=== PATIENT | male | born 1955 | race Caucasian/White ===

== ENCOUNTER 2016-12-04 18:52 | Inpatient (IN) ==
[2016-12-04] MEDS ORDERED: methylPREDNISolone 125 MG/2 ML VIAL IVP ONE (19:08)
[2016-12-04] MEDS ORDERED: Ipratropium/Albuterol Neb 3 ML IH ONE (19:08)
[2016-12-04] MEDS ORDERED: 0.9 % Sodium Chloride 1,000 ML IVC ONE ×2 (19:08→20:18)
--- NOTE | 2016-12-04 19:19 | Emergency Department Note ---
Disposition Clinical Impression: Severe sepsis, COPD exacerbation Pneumonia Qualifiers: Pneumonia type: due to unspecified organism Laterality: right Lung location: lower lobe of lung Qualified Code(s): J18.1 - Lobar pneumonia, unspecified organism Disposition: Admitted As Inpatient Condition: Fair Referrals: NO,PCP [Primary Care Provider] - Forms: ED Satisfaction Letter General Adult HPI - General Chief complaint: ED Shortness of Breath/Dyspnea Stated complaint: COPD Time Seen by Provider: 12/04/16 19:07 Source: patient, EMS Mode of arrival: EMS Limitations: no limitations Nursing Notes Reviewed: Yes Vital Signs Reviewed: Yes - History of Present Illness HPI Narrative: 61-year-old male past medical history of COPD, hyperlipidemia, depression. He wears 2 L of oxygen at home. He reports that he is had a couple days of worsening shortness of breath and cough. He says today it was markedly worse. He denies chest pain. He has been feeling generally fatigued. He reports he is just admitted in October and in looking through the medical record is due to a COPD exacerbation. He does continue to smoke. This is worse with exertion and does get better with rest. No orthopnea or lower extremity edema. Radiation: non-radiation Pain Scale: 0 Consistency: constant Associated symptoms: Reports: denies other symptoms Treatments Prior to Arrival: none - Related Data Home Medications Medication Instructions Recorded Confirmed Ferrous Sulfate 325 mg PO DAILY 07/25/15 11/10/16 Omeprazole [PriLOSEC] 20 mg PO DAILY 07/25/15 11/10/16 Albuterol Neb [Proventil Neb] 2.5 mg IH Q6H PRN 07/19/16 11/10/16 Cholecalciferol (D-3) [Vitamin D] 1,000 unit PO DAILY 07/19/16 11/10/16 Paroxetine [Paxil] 20 mg PO DAILY 07/19/16 11/10/16 Primidone [Mysoline] 50 mg PO HS 07/19/16 11/10/16 Tiotropium [place] [Spiriva] 1 cap IH DAILY 07/19/16 11/10/16 Trazodone HCl 50 - 100 mg PO HS 11/10/16 11/10/16 Allergies Allergy/AdvReac Type Severity Reaction Status Date / Time No Known Allergies Allergy Verified 12/04/16 18:59 All systems ED: reviewed and negative except as stated. Constitutional: Reports: chills, weakness. Denies: fever Eyes: Denies: vision change ENT ED: Denies: throat pain Cardiovascular: Denies: chest pain Respiratory: Reports: cough, dyspnea, wheezes Gastrointestinal: Denies: abdominal pain, nausea, vomiting Genitourinary: Denies: dysuria Musculoskeletal: Denies: back pain Integumentary: Denies: rash Neurological: Denies: headache Endocrine: Reports: fatigue Past Medical History - Past Medical History Medical history: Reports: arthritis, asthma, COPD, GERD, osteoporosis, other Surgical history: Reports: orthopedic, other, other Psychiatric history: Reports: anxiety, depression - Social History Smoking Status: Current every day smoker Smokeless Tobacco Status: No Alcohol use: Reports: none Drug use: Reports: none Physical Exam - General Limitations: no limitations General appearance: alert, in no apparent distress - Head Head exam: atraumatic - Eye Eye exam: Present: normal appearance, PERRL, EOMI - ENT ENT exam: normal exam, normal oropharynx - Neck Neck exam: Present: normal inspection, full ROM - Chest Chest inspection: Present: normal inspection - Respiratory Respiratory exam: Present: other (Markedly decreased air movement. Tight. Minimal wheezes after albuterol) - Cardiovascular Cardiovascular exam: Present: normal rhythm, tachycardia - Abdominal Exam Abdominal exam: Present: soft, Non-Tender - Extremities Exam Extremities exam: Present: normal inspection - Back Exam Back exam: Present: normal inspection - Neurological Exam Neurological exam: Present: alert, oriented X3 - Psychiatric Psychiatric exam: Present: normal affect, normal mood - Skin Skin exam: Present: warm, dry Course Course Narrative: The patient states this feels like his COPD exacerbation and the symptoms that he describes are consistent with that. I will do a EKG obtained blood cultures and lab work in addition to giving Solu-Medrol and DuoNeb. She did have rigors while those in the room sign concerned about infectious etiology associated with the COPD exacerbation. - Reevaluation(s) Reevaluation #1: Xray shows patchy airspace disease. He has a fever with respiratory symptoms. He feels much improved after breathing treatment and fluids. Starting abx and have paged the hospitalists Vitals have not been updated with a temperature of 102.9 taken by myself. Vital Signs Temperature 98.3 F 12/04/16 18:58 Pulse Rate 117 12/04/16 18:58 Respiratory Rate 20 12/04/16 18:58 Blood Pressure 152/118 12/04/16 18:58 O2 Sat by Pulse Oximetry 88 L 12/04/16 18:58 Temperature 102.9 F H 12/04/16 19:30 Pulse Rate 106 12/04/16 19:30 Respiratory Rate 18 12/04/16 19:44 Blood Pressure 143/88 12/04/16 19:30 O2 Sat by Pulse Oximetry 90 L 12/04/16 19:44 Oxygen Delivery Oxygen Delivery Nasal Cannula Medical Decision Making - Medical Records Medical records reviewed: Yes I reviewed the patient's medical records. - Lab Data Lab results reviewed: Yes I reviewed the patient's lab results. Result diagrams: 12/04/16 19:17 12/04/16 19:17 Lab Results 12/04/16 12/04/16 12/04/16 Range/Units 19:17 19:17 19:17 WBC 12.6 H (4.3-11.1) K/mcL RBC 4.66 (4.19-5.50) M/mcL Hgb 14.7 (12.9-16.9) g/dL Hct 44.4 (37.5-50.1) % MCV 95.3 (83.0-100.0) fL MCH 31.5 (28.0-33.3) pg MCHC 33.1 (31.6-35.5) g/dL RDW 13.7 (11.5-14.5) % Plt Count 202 (140-400) K/mcL MPV 9.9 (9.4-12.4) fL Immature Gran % 0.4 (0-4) % Seg Neutrophils % 85.7 % Lymphocytes % 7.8 % Monocytes % 4.3 % Eosinophils % 1.6 % Basophils % 0.2 % Neutrophils # 10.8 H (1.6-8.9) K/mcL Lymphocytes # 1.0 (0.6-4.6) K/mcL Monocytes # 0.5 (0.0-1.3) K/mcL Eosinophils # 0.2 (0.0-0.6) K/mcL Basophils # 0.0 (0.0-0.2) K/mcL Sodium 137 (136-145) mEq/L Potassium 3.6 (3.5-4.5) mEq/L Chloride 104 (98-109) mEq/L Carbon Dioxide 22 (19-29) mEq/L BUN 11 (8-26) mg/dL Creatinine 1.35 H (0.72-1.25) mg/dL Est GFR ( Amer) > 60 (> 60) Est GFR (Non-Af Amer) 54 L (> 60) BUN/Creatinine Ratio 8 (6-26) Glucose 150 H (70-99) mg/dL Calculated Osmolality 286 (280-300) Lactic Acid 2.9 H (0.5-2.2) mmol/L Calcium 8.8 (8.6-10.8) mg/dL Troponin I (0-0.03) ng/mL B-Natriuretic Peptide (0-100) pg/mL 12/04/16 12/04/16 Range/Units 19:17 19:17 WBC (4.3-11.1) K/mcL RBC (4.19-5.50) M/mcL Hgb (12.9-16.9) g/dL Hct (37.5-50.1) % MCV (83.0-100.0) fL MCH (28.0-33.3) pg MCHC (31.6-35.5) g/dL RDW (11.5-14.5) % Plt Count (140-400) K/mcL MPV (9.4-12.4) fL Immature Gran % (0-4) % Seg Neutrophils % % Lymphocytes % % Monocytes % % Eosinophils % % Basophils % % Neutrophils # (1.6-8.9) K/mcL Lymphocytes # (0.6-4.6) K/mcL Monocytes # (0.0-1.3) K/mcL Eosinophils # (0.0-0.6) K/mcL Basophils # (0.0-0.2) K/mcL Sodium (136-145) mEq/L Potassium (3.5-4.5) mEq/L Chloride (98-109) mEq/L Carbon Dioxide (19-29) mEq/L BUN (8-26) mg/dL Creatinine (0.72-1.25) mg/dL Est GFR ( Amer) (> 60) Est GFR (Non-Af Amer) (> 60) BUN/Creatinine Ratio (6-26) Glucose (70-99) mg/dL Calculated Osmolality (280-300) Lactic Acid (0.5-2.2) mmol/L Calcium (8.6-10.8) mg/dL Troponin I 0.01 (0-0.03) ng/mL B-Natriuretic Peptide 18 (0-100) pg/mL - Radiology Data Radiology results reviewed: No I reviewed the patient's radiology results. - EKG Data EKG #1 EKG attestation: Yes I reviewed and interpreted this EKG. EKG shows normal: sinus rhythm Rate: tachycardia Rhythm: NSR When compared to previous EKG there are: no significant changes Attestation Statement - Attestation Attestation: I, Beny Vickers MD, personally performed a history and physical exam of the patient and discussed their management with the resident. I reviewed the resident's note and agree with the documented findings, medical decision making , and plan of care. 61-year-old male with history of COPD presents to the emergency department by ambulance with a complaint of increasing cough and shortness of breath over the past 2 days. He does use home oxygen as needed but states it did not seem to be helping much. He has had chills and subjective fever. No chest pain. On examination patient is a well-developed obese male in no acute distress. He is alert and oriented 3. There is no cyanosis or diaphoresis. Breath sounds are decreased bilaterally with scattered bilateral expiratory wheezes. Heart tachycardic and regular. Abdomen soft and nontender with normal bowel sounds. Labs reviewed. WBC 12.6. Lactic acid 2.9. Chest x-ray shows bibasilar airspace disease. EKG shows sinus tachycardia with a heart rate of 112, no acute changes. The hospitalist, Dr. Joe, was consulted and accepted admission of the patient.
[2016-12-04 19:32] LABS: Basophils % 0.2 %; Eosinophils # 0.2 K/mcL (0.0-0.6); Eosinophils % 1.6 %; Hematocrit 44.4 % (37.5-50.1); Hemoglobin 14.7 g/dL (12.9-16.9); Immature Granulocytes % 0.4 % (0-4); Lymphocytes % 7.8 %; Mean Corpuscular HGB Conc 33.1 g/dL (31.6-35.5); Mean Corpuscular Hemoglobin 31.5 pg (28.0-33.3); Mean Corpuscular Volume 95.3 fL (83.0-100.0); Mean Platelet Volume 9.9 fL (9.4-12.4); Monocytes # 0.5 K/mcL (0.0-1.3); Monocytes % 4.3 %; Neutrophils # 10.8 K/mcL (1.6-8.9); Platelet Count 202 K/mcL (140-400); Red Blood Count 4.66 M/mcL (4.19-5.50); Red Cell Distribution Width 13.7 % (11.5-14.5); Segmented Neutrophils % 85.7 %
[2016-12-04 20:18] LABS: BUN/Creatinine Ratio 8 (6-26); Blood Urea Nitrogen 11 mg/dL (8-26); Calcium 8.8 mg/dL (8.6-10.8); Carbon Dioxide 22 mEq/L (19-29); Chloride 104 mEq/L (98-109); Glucose 150 mg/dL (70-99); Osmolality,Calculated 286 (280-300); Potassium 3.6 mEq/L (3.5-4.5); Sodium 137 mEq/L (136-145); eGFR For African Americans > 60 (> 60); eGFR For Non-African Americans 54 (> 60)
[2016-12-04] MEDS ORDERED: Levofloxacin 750 MG/150 ML 750 MG/150 ML BAG IVPB ONE (20:19)
[2016-12-04] MEDS ORDERED: Vancomycin 1,000 MG in D5% in Water 250 ML IVPB ONE (20:19)
[2016-12-04] MEDS ORDERED: Piperacillin/Tazobactam 3.375 GM in D5% in Water (Mini-Bag+) 100 ML IVPB ONE (20:19)
[2016-12-04] MEDS ORDERED: Ondansetron 4 MG/2 ML VIAL IVP PRN (20:46)
[2016-12-04] MEDS ORDERED: Acetaminophen 325 MG TABLET PO PRN (20:46)
[2016-12-04] MEDS ORDERED: *HR* HYDROcodone/Acet 5/325 mg TABLET PO PRN (20:46)
[2016-12-04] MEDS ORDERED: Naloxone 0.4 MG/ML INJ IVP PRN (20:46)
[2016-12-04] MEDS ORDERED: *HR* Morphine 2 MG/ML SYRINGE IVP PRN (20:46)
[2016-12-04] MEDS ORDERED: 0.9 % Sodium Chloride 1,000 ML IVC SCH (21:00)
--- NOTE | 2016-12-04 22:11 | Internal Med History&Physical ---
Date of Encounter: 12/04/16 Time of Encounter: 22:08 Assessment and Plan (1) Acute and chronic respiratory failure ([id number]) Current visit: Yes Status: Acute Secondary to sepsis, HCAP At time of review, O2sat 93% , acceptable for his COPD status Continue same Qualifiers: Respiratory failure complication: hypoxia Qualified Code(s): J96.21 - Acute and chronic respiratory failure with hypoxia (2) Severe sepsis Current visit: Yes Status: Acute Severe sepsis with lactic acidosis and SCOTT Tmax 102.9, tachycardia, leukocytosis Source is Pulmonary-HCAP, patient was recently hospitalized in 10/2016 Blood cultures have been drawn, will follow Continue Vaco, Zosyn, Levofox De-escalate prn Sputum cultures when /if patient starts to make sputum Blood pressure is acceptable Continue IVF hydration Repeat lactate High risk for septic shock (3) Pneumonia Current visit: Yes Status: Acute As above Qualifiers: Pneumonia type: due to unspecified organism Laterality: bilateral Lung location: lower lobe of lung Qualified Code(s): J18.9 - Pneumonia, unspecified organism (4) Lactic acidosis Current visit: Yes Status: Acute IVF hydration Rpt lactate a.m (5) SCOTT (acute kidney injury) Current visit: Yes Status: Acute Mild IVF hydration Pre-renal, non-oliguric Avoid nephrotoxins Monitor chem (6) COPD exacerbation Current visit: Yes Status: Acute Duoebs q4h Prednisone po KeepHOB elevated Other management as in sepsis and pneumonia (7) Obesity (BMI 30-39.9) Current visit: Yes Status: Chronic Internal Medicine - H&P: HPI Chief complaint: Shortness of breath Admitted From: Home Plans for Post Hospital Care: Home History of present illness: Mr. Multani is a 61 year old male recently discharged from this facility 10/2016 Was in his usual state of health till 4 days ago when he developed shortness of breath and wheezing, this did not respond to his usual breathing treatment. He also reports chills and rigors, and subjective fevers. He reports associated dry cough. He denies sick contacts, recent travels, sore throat, myalgias, arthralgias. He denies chest pain, palpitations, denies orthopnea, or PND. He has no leg swelling. He just received his booster Pneumovac and Influenza vaccine this season He denies any abdominal or symptoms. Past Med Surg Social Fam HX - Past Medical History Medical history: arthritis, asthma, COPD, GERD, osteoporosis, other Psychiatric history: anxiety, depression - Past Surgical History Surgical History: orthopedic, other, other - Social History Smoking Status: Current every day smoker Smokeless Tobacco Status: No Alcohol use: none Drug use: none - Family History Mother Living Status: Hx Family Cardiac Disorders: Yes ([place]) Father Adopted: No Family Member Ethnicity: Non- Living Status: Hx Family Cancer: Yes Internal Medicine - H&P: Meds Ferrous Sulfate 325 mg PO DAILY 07/25/15 [History] Omeprazole [PriLOSEC] 20 mg PO DAILY 07/25/15 [History] Albuterol Neb [Proventil Neb] 2.5 mg IH Q6H PRN 07/19/16 [History] Paroxetine [Paxil] 20 mg PO DAILY 07/19/16 [History] Primidone [Mysoline] 50 mg PO HS 07/19/16 [History] Tiotropium [place] [Spiriva] 1 cap IH DAILY 07/19/16 [History] Trazodone HCl 50 - 100 mg PO HS 11/10/16 [History] Albuterol Sulfate [Ventolin Hfa] 2 puff IH Q4H PRN 12/04/16 [History] Aspirin [Ecotrin] 325 mg PO DAILY PRN 12/04/16 [History] BuPROPion XL (24 HR) [Wellbutrin XL] 150 mg PO DAILY 12/04/16 [History] Allergies No Known Allergies Allergy (Verified 12/04/16 18:59) All Systems PM: A 10-system review of systems was performed and is negative for pertinent findings except as documented above in the HPI. - Constitutional Constitutional: chills, fever(s), malaise - EENT Eyes: no change in vision, no discharge, no pain, no photophobia Ears: no ear discharge, no ear pain, no tinnitus Nose, mouth and throat: no dysphagia, no nasal discharge, no neck pain, no sore throat - Cardiovascular Cardiovascular ROS IM: as per HPI - Respiratory Respiratory: as per HPI - Gastrointestinal Gastrointestinal: as per HPI - Musculoskeletal Musculoskeletal ROS IM: no arthralgias, no myalgias - Integumentary Integumentary IM: no rash, no unusual bruising - Neurological Neurological ROS: no confusion, no convulsions, no focal weakness, no numbness, no tingling, no tremor(s) - Hematologic/Lymphatic Hematologic/Lymphatic: no easy bruising - Allergic/Immunologic Allergic/Immunologic: no seasonal rhinorrhea - Constitutional Vitals: Temp Pulse Resp BP Pulse Ox 100.6 F H 109 18 116/71 95 12/04/16 22:00 12/04/16 20:36 12/04/16 21:42 12/04/16 21:42 12/04/16 20:36 General appearance: Present: A&O X 3, pleasant, no acute distress, obese - Head Head exam: Present: atraumatic, normocephalic - Eye Eye exam: Present: PERRL, conjuntiva pink, sclera anicteric Pupils: Present: PERRL - Neck Neck exam general surgery: Present: supple, trachea midline. Absent: lymphadenopathy - Respiratory Respiratory exam: Present: wheezes - Cardiovascular Cardiovascular exam: Present: RRR, +S1, +S2, tachycardia. Absent: diastolic murmur, gallop, rubs, systolic murmur - GI/Abdominal GI/Abdominal exam: Present: normal bowel sounds, soft, no peritoneal signs. Absent: distended, tenderness - Extremities Exam Extremities exam: Present: warm, radial pulses palpable and symetrical. Absent : calf tenderness, cyanotic, pedal edema - Neurological Exam Neurological exam: Present: CN II-XII intact, oriented X3, no focal deficits. Absent: pronater drift, facial droop, speech deficit - Skin Skin exam: Present: dry, intact Internal Med - H&P Results - Labs CBC & Chem 7: 12/04/16 19:17 12/04/16 19:17
[2016-12-04] MEDS: Ipratropium/Albuterol Neb 3 ML IH SCH (22:36)
[2016-12-05 01:30] LABS: Basophils % 0.1 %; Hematocrit 41.2 % (37.5-50.1); Hemoglobin 13.9 g/dL (12.9-16.9); Immature Granulocytes % 0.4 % (0-4); Lymphocytes % 2.6 %; Mean Corpuscular HGB Conc 33.7 g/dL (31.6-35.5); Mean Corpuscular Volume 94.9 fL (83.0-100.0); Monocytes % 3.1 %; Platelet Count 188 K/mcL (140-400); Red Blood Count 4.34 M/mcL (4.19-5.50); Red Cell Distribution Width 13.3 % (11.5-14.5); Segmented Neutrophils % 93.8 %
[2016-12-05 01:31] LABS: Lymphocytes # 0.4 K/mcL (0.6-4.6); Monocytes # 0.4 K/mcL (0.0-1.3); Neutrophils # 13.4 K/mcL (1.6-8.9)
[2016-12-05 01:46] LABS: BUN/Creatinine Ratio 8 (6-26); Blood Urea Nitrogen 11 mg/dL (8-26); Calcium 8.3 mg/dL (8.6-10.8); Carbon Dioxide 19 mEq/L (19-29); Chloride 110 mEq/L (98-109); Glucose 250 mg/dL (70-99); Osmolality,Calculated 294 (280-300); Potassium 3.8 mEq/L (3.5-4.5); Sodium 138 mEq/L (136-145); eGFR For African Americans > 60 (> 60); eGFR For Non-African Americans 54 (> 60)
[2016-12-05] MEDS: Piperacillin/Tazobactam 3.375 GM in D5% in Water (Mini-Bag+) 100 ML IVPB SCH ×3 (03:22→16:58)
[2016-12-05] MEDS: Ipratropium/Albuterol Neb 3 ML IH SCH ×5 (04:13→22:32)
[2016-12-05] MEDS ORDERED: Vancomycin 2,000 MG in D5% in Water 500 ML IVPB SCH (06:00)
[2016-12-05] MEDS ORDERED: Vancomycin 1,000 MG in D5% in Water 250 ML IVPB SCH (06:00)
[2016-12-05] MEDS: *HR* Enoxaparin 40 MG/0.4 ML SYRINGE SQ SCH (06:35)
--- NOTE | 2016-12-05 08:40 | Internal Med Progress Note ---
<Richard Coleman - Last Filed: 12/05/16 13:11> Date of Encounter: 12/05/16 Time of Encounter: 08:40 - Assessment and plan (1) HCAP (healthcare-associated pneumonia) Current Visit: Yes Status: Acute Assessment and plan: Discharged on 11/13/17, x-ray showed patchy airspace disease, with severe sepsis , con't vanco, zosyn and levaquin, bld culture pending. (2) Severe sepsis Current Visit: Yes Status: Acute Assessment and plan: Leukocytosis and fever, with SCOTT and lactic acidosis, 2/2 HCAP, con't IV abxs. (3) SCOTT (acute kidney injury) Current Visit: Yes Status: Acute Assessment and plan: 2/2 severes sepsis, pre-renal, con't NS IV fluid and treat underlying infection. (4) Lactic acidosis Current Visit: Yes Status: Acute Assessment and plan: Likely 2/2 severe sepsis, treat underlying HCAP with IV abxs. Recheck in AM. (5) Acute exacerbation of chronic obstructive airways disease Current Visit: No Status: Resolved Assessment and plan: 2/2 HCAP, con't po steroid, oxygen support, duoneb ATC and IV abxs. (6) Obesity (BMI 30-39.9) Current Visit: Yes Status: Chronic Assessment and plan: Diet and lifestyle modifications. (7) DVT prophylaxis Current Visit: Yes Status: Acute Assessment and plan: Lovenox SQ. - Subjective Interval history: Pt seen and examined, SOB is slightly better, still just dry cough, no nausea/ emesis or chest pain. - Constitutional Vitals: Temp Pulse Resp BP Pulse Ox 97.4 F L 53 17 118/65 99 12/05/16 07:48 12/05/16 07:48 12/05/16 07:48 12/05/16 07:48 12/05/16 07:48 General appearance: Present: cooperative, A&O X 3, pleasant, no acute distress, obese, answers questions appropriately - Head Head exam: Present: atraumatic, normocephalic - Eye Eye exam: Present: PERRL, conjuntiva pink, sclera anicteric Pupils: Present: PERRL - Neck Neck exam general surgery: Present: supple, trachea midline. Absent: lymphadenopathy - Respiratory Respiratory exam: Present: decreased breath sounds (diffusely b/l). Absent: accessory muscle use, rales, rhonchi, wheezes - Cardiovascular Cardiovascular exam: Present: RRR, +S1, +S2. Absent: diastolic murmur, gallop, rubs, systolic murmur - GI/Abdominal GI/Abdominal exam: Present: normal bowel sounds, soft, no peritoneal signs. Absent: distended, tenderness - Extremities Exam Extremities exam: Present: warm, radial pulses palpable and symetrical. Absent : calf tenderness, cyanotic, pedal edema - Neurological Exam Neurological exam: Present: CN II-XII intact, oriented X3, no focal deficits. Absent: pronater drift, facial droop, speech deficit - Skin Skin exam: Present: dry, intact Internal Medicine: Result - Labs CBC & Chem 7: 12/05/16 01:22 12/05/16 01:22 Labs: Short CBC 12/05/16 Range/Units 01:22 WBC 14.3 H (4.3-11.1) K/mcL Hgb 13.9 (12.9-16.9) g/dL Hct 41.2 (37.5-50.1) % Plt Count 188 (140-400) K/mcL Neutrophils # 13.4 H (1.6-8.9) K/mcL BMP 12/05/16 01:22 Sodium 138 Potassium 3.8 Chloride 110 H Carbon Dioxide 19 BUN 11 Creatinine 1.34 H Glucose 250 H Calcium 8.3 L Consult Discharge Plan - Plan Referrals: Melodie Brand, ORCHESTRA DIRECTOR [Primary Care Provider] - <Jose David Drew - Last Filed: 12/05/16 15:03> Date of Encounter: 12/05/16 - Assessment and plan (1) Pneumonia Current Visit: Yes Status: Suspected Qualifiers: Pneumonia type: due to other aerobic Gram-negative bacteria Laterality: bilateral Lung location: unspecified part of lung Qualified Code(s): J15.6 - Pneumonia due to other aerobic Gram-negative bacteria (2) COPD exacerbation Current Visit: Yes Status: Acute (3) Severe sepsis Current Visit: Yes Status: Acute (4) Obesity (BMI 30-39.9) Current Visit: Yes Status: Chronic (5) Tobacco abuse Current Visit: Yes Status: Chronic Assessment and plan: Cessation counselling. (6) Chronic respiratory failure Current Visit: Yes Status: Chronic Qualifiers: Respiratory failure complication: hypoxia Qualified Code(s): J96.11 - Chronic respiratory failure with hypoxia - Constitutional Vitals: Temp Pulse Resp BP Pulse Ox 97.4 F L 70 16 133/77 98 12/05/16 11:59 12/05/16 11:59 12/05/16 10:53 12/05/16 11:59 12/05/16 11:39 Internal Medicine: Result - Labs CBC & Chem 7: 12/05/16 01:22 12/05/16 01:22 Labs: Short CBC 12/05/16 Range/Units 01:22 WBC 14.3 H (4.3-11.1) K/mcL Hgb 13.9 (12.9-16.9) g/dL Hct 41.2 (37.5-50.1) % Plt Count 188 (140-400) K/mcL Neutrophils # 13.4 H (1.6-8.9) K/mcL BMP 12/05/16 01:22 Sodium 138 Potassium 3.8 Chloride 110 H Carbon Dioxide 19 BUN 11 Creatinine 1.34 H Glucose 250 H Calcium 8.3 L - Attending Attestation I examined this patient and my medical decision-making was reviewed with the Resident Physician on 12/05/16. I agree with the documented findings, disposition and treatment plan as described except to the extent set forth below. Mr. Multani is currently admitted for acute HCAP and exacerbation of COPD. He is moderate to high risk due to recurrent symptoms and possibility of worsening respiratory status. Mr. Multani feels about the same today. He is still quite dyspneic. No pain. No GI symptoms. Is able to get up and walk some. Exam Alert. Comfortable currently Heart reg Mild dyspnea at rest. Lungs with wheeze I/P 1. Acute HCAP 2. Acute exac COPD 3. Probable constipation Further diagnoses and plan as above.
[2016-12-05] MEDS: BuPROPion XL (24 HR) 150 MG TABLET PO SCH (09:27)
[2016-12-05] MEDS: predniSONE 20 MG TABLET PO SCH (09:28)
[2016-12-05] MEDS: Levofloxacin 750 MG/150 ML 750 MG/150 ML BAG IVPB SCH (09:31)
[2016-12-05] MEDS: 0.9 % Sodium Chloride 1,000 ML IVC SCH (12:38)
--- NOTE | 2016-12-05 16:18 | Electrocardiograph Report ---
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
[2016-12-05] MEDS: Vancomycin 1,500 MG in D5% in Water 250 ML IVPB SCH (18:43)
[2016-12-05] MEDS: traZODone 50 MG TABLET PO SCH (20:01)
[2016-12-05] MEDS: Primidone 50 MG TABLET PO SCH (20:01)
[2016-12-06] MEDS: Ipratropium/Albuterol Neb 3 ML IH SCH ×4 (04:10→22:00)
[2016-12-06 04:53] LABS: Basophils % 0.1 %; Eosinophils % 0.3 %; Hematocrit 36.9 % (37.5-50.1); Immature Granulocytes % 1.3 % (0-4); Lymphocytes # 1.1 K/mcL (0.6-4.6); Lymphocytes % 7.6 %; Mean Corpuscular HGB Conc 32.8 g/dL (31.6-35.5); Mean Corpuscular Hemoglobin 31.4 pg (28.0-33.3); Mean Corpuscular Volume 95.8 fL (83.0-100.0); Mean Platelet Volume 10.3 fL (9.4-12.4); Monocytes # 0.6 K/mcL (0.0-1.3); Monocytes % 4.3 %; Neutrophils # 12.7 K/mcL (1.6-8.9); Platelet Count 164 K/mcL (140-400); Red Blood Count 3.85 M/mcL (4.19-5.50); Red Cell Distribution Width 13.8 % (11.5-14.5); Segmented Neutrophils % 86.4 %
[2016-12-06 04:54] LABS: Hemoglobin 12.1 g/dL (12.9-16.9)
[2016-12-06 05:07] LABS: BUN/Creatinine Ratio 11 (6-26); Blood Urea Nitrogen 10 mg/dL (8-26); Calcium 8.5 mg/dL (8.6-10.8); Carbon Dioxide 19 mEq/L (19-29); Chloride 115 mEq/L (98-109); Glucose 166 mg/dL (70-99); Osmolality,Calculated 297 (280-300); Potassium 4.1 mEq/L (3.5-4.5); Sodium 142 mEq/L (136-145); eGFR For African Americans > 60 (> 60); eGFR For Non-African Americans > 60 (> 60)
[2016-12-06] MEDS: Vancomycin 1,500 MG in D5% in Water 250 ML IVPB SCH (05:42)
[2016-12-06] MEDS: *HR* Enoxaparin 40 MG/0.4 ML SYRINGE SQ SCH (05:42)
[2016-12-06] MEDS: 0.9 % Sodium Chloride 1,000 ML IVC SCH ×2 (05:43→10:29)
[2016-12-06] MEDS: Levofloxacin 750 MG/150 ML 750 MG/150 ML BAG IVPB SCH (08:36)
[2016-12-06] MEDS: predniSONE 20 MG TABLET PO SCH (10:27)
[2016-12-06] MEDS: BuPROPion XL (24 HR) 150 MG TABLET PO SCH (10:28)
[2016-12-06] MEDS: Piperacillin/Tazobactam 3.375 GM in D5% in Water (Mini-Bag+) 100 ML IVPB SCH ×3 (10:28→17:26)
--- NOTE | 2016-12-06 12:59 | Internal Med Progress Note ---
<Richard Coleman - Last Filed: 12/06/16 12:57> Date of Encounter: 12/06/16 Time of Encounter: 12:57 - Assessment and plan (1) HCAP (healthcare-associated pneumonia) Current Visit: Yes Status: Acute Assessment and plan: Discharged on 11/13/17, x-ray showed patchy airspace disease, severe sepsis resolved, bld culture negative, will d/c vanco and con't zosyn and levaquin. (2) Severe sepsis Current Visit: Yes Status: Acute Assessment and plan: Resolved, SCOTT and lactic acidosis resolved, 2/2 HCAP, con't IV abxs. (3) SCOTT (acute kidney injury) Current Visit: Yes Status: Acute Assessment and plan: 2/2 severes sepsis, pre-renal, resolved. (4) Lactic acidosis Current Visit: Yes Status: Acute Assessment and plan: Likely 2/2 severe sepsis, treat underlying HCAP with IV abxs. Resolved. (5) Acute exacerbation of chronic obstructive airways disease Current Visit: No Status: Resolved Assessment and plan: 2/2 HCAP, con't IV steroid, oxygen support, duoneb ATC and IV abxs. (6) Obesity (BMI 30-39.9) Current Visit: Yes Status: Chronic Assessment and plan: Diet and lifestyle modifications. (7) DVT prophylaxis Current Visit: Yes Status: Acute Assessment and plan: Lovenox SQ. - Subjective Interval history: Pt seen and examined, SOB is better but not back to baseline yet, still just dry cough, no nausea/emesis or chest pain. - Constitutional Vitals: Temp Pulse Resp BP Pulse Ox 97.9 F 52 16 112/78 100 12/06/16 11:14 12/06/16 11:14 12/06/16 11:14 12/06/16 11:14 12/06/16 11:14 General appearance: Present: cooperative, A&O X 3, pleasant, no acute distress, obese, answers questions appropriately - Head Head exam: Present: atraumatic, normocephalic - Eye Eye exam: Present: PERRL, conjuntiva pink, sclera anicteric Pupils: Present: PERRL - Neck Neck exam general surgery: Present: supple, trachea midline. Absent: lymphadenopathy - Respiratory Respiratory exam: Present: wheezes (diffis; emmmmmmmmmmmmmmmmmmmmmmmmmmmmmmmmmmmmmmmmmmmmmmmmmmmmmmmmmmmmmmmmmmmmmmmmmmmmmmm mmmmmmmmmmmmmmmmmmmmmmmmmmmmmmmmmmmmmmmmmmmmmmmmmmmmmmmmmmmmmmmmmmmmmmmmmmmmmmmm mmmmmmmmmmmmmmmmmmmmmmmmmmmmmmmmmmmmmmmmmmmmmmmmmmmmmmmmmmmmmmmmmmmmmmmmmmmmmmmm mmmmm mmmmmmmmmmmmmmmmmmmmmmmmmmmm). Absent: accessory muscle use, rales, rhonchi - Cardiovascular Cardiovascular exam: Present: RRR, +S1, +S2. Absent: diastolic murmur, gallop, rubs, systolic murmur - GI/Abdominal GI/Abdominal exam: Present: normal bowel sounds, soft, no peritoneal signs. Absent: distended, tenderness - Extremities Exam Extremities exam: Present: warm, radial pulses palpable and symetrical. Absent : calf tenderness, cyanotic, pedal edema - Neurological Exam Neurological exam: Present: CN II-XII intact, oriented X3, no focal deficits. Absent: pronater drift, facial droop, speech deficit - Skin Skin exam: Present: dry, intact Internal Medicine: Result - Labs CBC & Chem 7: 12/06/16 04:45 12/06/16 04:45 Labs: Short CBC 12/06/16 Range/Units 04:45 WBC 14.7 H (4.3-11.1) K/mcL Hgb 12.1 L D (12.9-16.9) g/dL Hct 36.9 L (37.5-50.1) % Plt Count 164 (140-400) K/mcL Neutrophils # 12.7 H (1.6-8.9) K/mcL BMP 12/06/16 04:45 Sodium 142 Potassium 4.1 Chloride 115 H Carbon Dioxide 19 BUN 10 Creatinine 0.95 Glucose 166 H Calcium 8.5 L Consult Discharge Plan - Plan Referrals: Melodie Brand, [employer] [Primary Care Provider] - <Jose David Drew - Last Filed: 12/06/16 17:40> Date of Encounter: 12/06/16 - Assessment and plan (1) Pneumonia Current Visit: Yes Status: Suspected Qualifiers: Pneumonia type: due to other aerobic Gram-negative bacteria Laterality: bilateral Lung location: unspecified part of lung Qualified Code(s): J15.6 - Pneumonia due to other aerobic Gram-negative bacteria (2) COPD exacerbation Current Visit: Yes Status: Acute (3) Severe sepsis Current Visit: Yes Status: Resolved (4) Obesity (BMI 30-39.9) Current Visit: Yes Status: Chronic (5) Tobacco abuse Current Visit: Yes Status: Chronic (6) Chronic respiratory failure Current Visit: Yes Status: Chronic Qualifiers: Respiratory failure complication: hypoxia Qualified Code(s): J96.11 - Chronic respiratory failure with hypoxia - Constitutional Vitals: Temp Pulse Resp BP Pulse Ox 97.9 F 78 15 120/76 97 12/06/16 16:13 12/06/16 16:13 12/06/16 16:13 12/06/16 16:13 12/06/16 16:13 Internal Medicine: Result - Labs CBC & Chem 7: 12/06/16 04:45 12/06/16 04:45 Labs: Short CBC 12/06/16 Range/Units 04:45 WBC 14.7 H (4.3-11.1) K/mcL Hgb 12.1 L D (12.9-16.9) g/dL Hct 36.9 L (37.5-50.1) % Plt Count 164 (140-400) K/mcL Neutrophils # 12.7 H (1.6-8.9) K/mcL BMP 12/06/16 04:45 Sodium 142 Potassium 4.1 Chloride 115 H Carbon Dioxide 19 BUN 10 Creatinine 0.95 Glucose 166 H Calcium 8.5 L - Attending Attestation I examined this patient and my medical decision-making was reviewed with the Resident Physician on 12/06/16. I agree with the documented findings, disposition and treatment plan as described except to the extent set forth below. Mr. Multani is currently admitted for acute respiratory issues related to pneumonia (HCAP probable gram negative) and COPD. He remains moderate to high risk due to the potential of worsening respiratory status. Mr. Multani does not feel much better today. His is at bedside and is concerned that he is not getting up (I saw him walking in the halls last night) . He denies CP. No GI symptoms. Using breathing treatments frequently. Exam Alert. Comfortable Heart reg Lungs diminished. No edema I/P 1. Acute exac COPD 2. Probable gram neg pneumonia (HCAP) 3. SCOTT resolved 4. Sepsis resolved. Further diagnoses and plan as above.
[2016-12-06] MEDS: MethylPREDNISolone 40 MG/ML VIAL IVP SCH (17:27)
[2016-12-06] MEDS: Primidone 50 MG TABLET PO SCH (20:19)
[2016-12-06] MEDS: traZODone 50 MG TABLET PO SCH (20:20)
[2016-12-07] MEDS: MethylPREDNISolone 40 MG/ML VIAL IVP SCH ×3 (00:26→17:30)
[2016-12-07] MEDS: Piperacillin/Tazobactam 3.375 GM in D5% in Water (Mini-Bag+) 100 ML IVPB SCH ×3 (00:29→17:31)
[2016-12-07] MEDS: Ipratropium/Albuterol Neb 3 ML IH SCH ×4 (04:19→22:02)
[2016-12-07] MEDS: *HR* Enoxaparin 40 MG/0.4 ML SYRINGE SQ SCH (05:40)
[2016-12-07 06:26] LABS: Basophils % 0.1 %; Hemoglobin 12.4 g/dL (12.9-16.9); Immature Granulocytes % 1.1 % (0-4); Lymphocytes # 0.5 K/mcL (0.6-4.6); Mean Corpuscular HGB Conc 32.6 g/dL (31.6-35.5); Mean Corpuscular Hemoglobin 31.9 pg (28.0-33.3); Mean Corpuscular Volume 97.7 fL (83.0-100.0); Mean Platelet Volume 10.7 fL (9.4-12.4); Monocytes # 0.4 K/mcL (0.0-1.3); Monocytes % 2.9 %; Neutrophils # 11.6 K/mcL (1.6-8.9); Platelet Count 212 K/mcL (140-400); Red Blood Count 3.89 M/mcL (4.19-5.50); Red Cell Distribution Width 14.1 % (11.5-14.5); Segmented Neutrophils % 91.9 %
[2016-12-07] MEDS: BuPROPion XL (24 HR) 150 MG TABLET PO SCH (08:12)
[2016-12-07] MEDS: Levofloxacin 750 MG/150 ML 750 MG/150 ML BAG IVPB SCH (08:13)
--- NOTE | 2016-12-07 10:57 | Internal Med Progress Note ---
<Richard Coleman - Last Filed: 12/07/16 10:55> Date of Encounter: 12/07/16 Time of Encounter: 10:55 - Assessment and plan (1) HCAP (healthcare-associated pneumonia) Current Visit: Yes Status: Acute Assessment and plan: Discharged on 11/13/17, x-ray showed patchy airspace disease, severe sepsis resolved, bld culture negative, d/c'ed vanco yesterday, con't zosyn and levaquin , clinically much improved, likely d/c tmw. (2) Severe sepsis Current Visit: Yes Status: Resolved Assessment and plan: Resolved, SCOTT and lactic acidosis resolved, 2/2 HCAP, con't IV abxs. (3) SCOTT (acute kidney injury) Current Visit: Yes Status: Acute Assessment and plan: 2/2 severes sepsis, pre-renal, resolved. (4) Lactic acidosis Current Visit: Yes Status: Acute Assessment and plan: Likely 2/2 severe sepsis, treat underlying HCAP with IV abxs. Resolved. (5) Acute exacerbation of chronic obstructive airways disease Current Visit: No Status: Resolved Assessment and plan: 2/2 HCAP, con't IV steroid, oxygen support, duoneb ATC and IV abxs. (6) Obesity (BMI 30-39.9) Current Visit: Yes Status: Chronic Assessment and plan: Diet and lifestyle modifications. (7) DVT prophylaxis Current Visit: Yes Status: Acute Assessment and plan: Lovenox SQ. - Subjective Interval history: Pt seen and examined, SOB is better, almost back to baseline, dry cough, no nausea/emesis or chest pain. - Constitutional Vitals: Temp Pulse Resp BP Pulse Ox 97.2 F L 60 15 127/69 99 12/07/16 07:00 12/07/16 07:00 12/07/16 07:00 12/07/16 07:00 12/07/16 08:26 General appearance: Present: cooperative, A&O X 3, pleasant, no acute distress, obese, answers questions appropriately - Head Head exam: Present: atraumatic, normocephalic - Eye Eye exam: Present: PERRL, conjuntiva pink, sclera anicteric Pupils: Present: PERRL - Neck Neck exam general surgery: Present: supple, trachea midline. Absent: lymphadenopathy - Respiratory Respiratory exam: Present: decreased breath sounds (at base b/l). Absent: accessory muscle use, rales, rhonchi, wheezes - Cardiovascular Cardiovascular exam: Present: RRR, +S1, +S2. Absent: diastolic murmur, gallop, rubs, systolic murmur - GI/Abdominal GI/Abdominal exam: Present: normal bowel sounds, soft, no peritoneal signs. Absent: distended, tenderness - Extremities Exam Extremities exam: Present: warm, radial pulses palpable and symetrical. Absent : calf tenderness, cyanotic, pedal edema - Neurological Exam Neurological exam: Present: CN II-XII intact, oriented X3, no focal deficits. Absent: pronater drift, facial droop, speech deficit - Skin Skin exam: Present: dry, intact Internal Medicine: Result - Labs CBC & Chem 7: 12/07/16 05:34 12/06/16 04:45 Labs: Short CBC 12/07/16 Range/Units 05:34 WBC 12.6 H (4.3-11.1) K/mcL Hgb 12.4 L (12.9-16.9) g/dL Hct 38.0 (37.5-50.1) % Plt Count 212 (140-400) K/mcL Neutrophils # 11.6 H (1.6-8.9) K/mcL Consult Discharge Plan - Plan Referrals: Melodie Brand CNP [Primary Care Provider] - <Jose David Drew - Last Filed: 12/07/16 17:15> Date of Encounter: 12/07/16 - Assessment and plan (1) Pneumonia Current Visit: Yes Status: Suspected Qualifiers: Pneumonia type: due to other aerobic Gram-negative bacteria Laterality: bilateral Lung location: unspecified part of lung Qualified Code(s): J15.6 - Pneumonia due to other aerobic Gram-negative bacteria (2) COPD exacerbation Current Visit: Yes Status: Acute (3) Severe sepsis Current Visit: Yes Status: Resolved (4) Obesity (BMI 30-39.9) Current Visit: Yes Status: Chronic (5) Tobacco abuse Current Visit: Yes Status: Chronic (6) Chronic respiratory failure Current Visit: Yes Status: Chronic Qualifiers: Respiratory failure complication: hypoxia Qualified Code(s): J96.11 - Chronic respiratory failure with hypoxia - Constitutional Vitals: Temp Pulse Resp BP Pulse Ox 97.5 F L 73 18 131/74 92 L 12/07/16 15:00 12/07/16 15:00 12/07/16 15:56 12/07/16 15:00 12/07/16 15:56 Internal Medicine: Result - Labs CBC & Chem 7: 12/07/16 05:34 12/06/16 04:45 Labs: Short CBC 12/07/16 Range/Units 05:34 WBC 12.6 H (4.3-11.1) K/mcL Hgb 12.4 L (12.9-16.9) g/dL Hct 38.0 (37.5-50.1) % Plt Count 212 (140-400) K/mcL Neutrophils # 11.6 H (1.6-8.9) K/mcL - Attending Attestation I examined this patient and my medical decision-making was reviewed with the Resident Physician on 12/07/16. I agree with the documented findings, disposition and treatment plan as described except to the extent set forth below. Mr. Multani is currently admitted for acute HCAP and exacerbation of COPD. He remains moderate risk due to potential for worsening respiratory status. He has been up ambulating in the [place]. Mr. Multani is resting comfortably. He is nearly back to baseline. No other issues. Exam Alert. Comfortable Heart reg No wheeze now. I/P 1. Acute HCAP - probable gram neg 2. Acute exac COPD Further diagnoses and plan as above Probable d/c tomorrow if continues to improve.
[2016-12-07] MEDS: Primidone 50 MG TABLET PO SCH (20:29)
[2016-12-07] MEDS: traZODone 50 MG TABLET PO SCH (20:29)
[2016-12-08] MEDS: Piperacillin/Tazobactam 3.375 GM in D5% in Water (Mini-Bag+) 100 ML IVPB SCH ×2 (00:38→11:23)
[2016-12-08] MEDS: MethylPREDNISolone 40 MG/ML VIAL IVP SCH ×2 (00:39→09:51)
[2016-12-08 04:24] LABS: Hematocrit 39.3 % (37.5-50.1); Hemoglobin 12.7 g/dL (12.9-16.9); Immature Granulocytes % 1.5 % (0-4); Lymphocytes # 0.5 K/mcL (0.6-4.6); Lymphocytes % 4.3 %; Mean Corpuscular HGB Conc 32.3 g/dL (31.6-35.5); Mean Corpuscular Hemoglobin 31.5 pg (28.0-33.3); Mean Corpuscular Volume 97.5 fL (83.0-100.0); Mean Platelet Volume 10.5 fL (9.4-12.4); Monocytes # 0.4 K/mcL (0.0-1.3); Monocytes % 3.5 %; Neutrophils # 9.6 K/mcL (1.6-8.9); Platelet Count 235 K/mcL (140-400); Red Blood Count 4.03 M/mcL (4.19-5.50); Red Cell Distribution Width 13.9 % (11.5-14.5); Segmented Neutrophils % 90.7 %
[2016-12-08] MEDS: Ipratropium/Albuterol Neb 3 ML IH SCH ×2 (04:33→10:28)
[2016-12-08] MEDS: *HR* Enoxaparin 40 MG/0.4 ML SYRINGE SQ SCH (05:16)
[2016-12-08 08:01] VITALS: BP 115/83
[2016-12-08] MEDS: BuPROPion XL (24 HR) 150 MG TABLET PO SCH (09:50)
[2016-12-08] MEDS: Levofloxacin 750 MG/150 ML 750 MG/150 ML BAG IVPB SCH (09:51)
--- NOTE | 2016-12-08 14:09 | Discharge Summary ---
<Richard Coleman - Last Filed: 12/08/16 14:07> Date of Encounter: 12/08/16 Time of Encounter: 14:07 - Discharge Diagnosis (1) HCAP (healthcare-associated pneumonia) Priority: Primary Status: Acute (2) Severe sepsis Priority: Secondary Status: Resolved (3) SCOTT (acute kidney injury) Priority: Secondary Status: Acute (4) Lactic acidosis Priority: Secondary Status: Acute (5) Acute exacerbation of chronic obstructive airways disease Priority: Secondary Status: Resolved (6) Obesity (BMI 30-39.9) Priority: Secondary Status: Chronic (7) DVT prophylaxis Priority: Secondary Status: Acute - Discharge Medications Prescriptions: Levofloxacin [Levaquin] 750 mg PO DAILY 5 Days PredniSONE 10 mg PO DAILY #40 tablet Home Medications: Ferrous Sulfate 325 mg PO DAILY 07/25/15 [History] Omeprazole [PriLOSEC] 20 mg PO DAILY 07/25/15 [History] Albuterol Neb [Proventil Neb] 2.5 mg IH Q6H PRN 07/19/16 [History] Paroxetine [Paxil] 20 mg PO DAILY 07/19/16 [History] Primidone [Mysoline] 50 mg PO HS 07/19/16 [History] Tiotropium Dorris [Spiriva] 1 cap IH DAILY 07/19/16 [History] Trazodone HCl 50 - 100 mg PO HS 11/10/16 [History] Albuterol Sulfate [Ventolin Hfa] 2 puff IH Q4H PRN 12/04/16 [History] Aspirin [Ecotrin] 325 mg PO DAILY PRN 12/04/16 [History] BuPROPion XL (24 HR) [Wellbutrin Xl] 150 mg PO DAILY 12/04/16 [History] Levofloxacin [Levaquin] 750 mg PO DAILY 5 Days 12/08/16 [Rx] PredniSONE 10 mg PO DAILY #40 tablet 12/08/16 [Rx] Allergies/Adverse Reactions: Allergies No Known Allergies Allergy (Verified 12/04/16 18:59) Date of admission: 12/04/16 20:45 Primary care physician: Melodie Brand CNP Discharging clinician: Richard Coleman Anticipated date of discharge: 12/08/16 - Patient Status Disposition: Home, Self-Care Condition: Fair Functional capacity at discharge: uses cane/walker (fall precaution) Overall status at discharge: patient is progressing back to baseline - Discharge Instructions Instructions: Chronic Obstructive Pulmonary Disease (DC), Pneumonia (DC) Follow Up With: Melodie Brand CNP [Primary Care Provider] - 12/16/16 1:15 pm (F/u in a week for hospital d/c f/u and possible referral to fiber designer.) - Diet and Activity Activity: resume usual activities as tolerated Diet: low fat, low cholesterol Hospital course: Mr. Multani is a 61 year old male with hx of COPD, came in with productive cough and SOB, recently d/c'ed from this hospital and chest x-ray suggested pneumonia therefore he was admitted for acute on COPD and HCAP. He was started on vanco, zosyn and zosyn IV and when blood culture came back, it was negative therefore vanco was stopped. SCOTT and lactic acidosis improved after NS IV fluid and by treating underlying infection. He was also on IV steroid for COPD exacerbation and it made his breathing better. Therefore he will be d/c today in stable condition. - Time Spent with Patient Total time spent providing and/or coordinating discharge services: - Constitutional Vitals: Temp Pulse Resp BP Pulse Ox 97.6 F 74 16 115/83 97 12/08/16 07:00 12/08/16 07:00 12/08/16 07:00 12/08/16 07:00 12/08/16 07:22 General appearance: Present: cooperative, A&O X 3, pleasant, no acute distress, obese, answers questions appropriately - Head Head exam: Present: atraumatic, normocephalic - Eye Eye exam: Present: PERRL, conjuntiva pink, sclera anicteric Pupils: Present: PERRL - Neck Neck exam general surgery: Present: supple, trachea midline. Absent: lymphadenopathy - Respiratory Respiratory exam: Present: decreased breath sounds (diffusely in b/l). Absent: accessory muscle use, rales, rhonchi, wheezes - Cardiovascular Cardiovascular exam: Present: RRR, +S1, +S2. Absent: diastolic murmur, gallop, rubs, systolic murmur - GI/Abdominal GI/Abdominal exam: Present: normal bowel sounds, soft, no peritoneal signs. Absent: distended, tenderness - Extremities Exam Extremities exam: Present: warm, radial pulses palpable and symetrical. Absent : calf tenderness, cyanotic, pedal edema - Neurological Exam Neurological exam: Present: CN II-XII intact, oriented X3, no focal deficits. Absent: pronater drift, facial droop, speech deficit - Skin Skin exam: Present: dry, intact <RajendraJose David Paola - Last Filed: 12/08/16 16:53> Date of Encounter: 12/08/16 - Discharge Diagnosis (1) Pneumonia Status: Suspected Qualifiers: Pneumonia type: due to other aerobic Gram-negative bacteria Laterality: bilateral Lung location: unspecified part of lung Qualified Code(s): J15.6 - Pneumonia due to other aerobic Gram-negative bacteria (2) COPD exacerbation Priority: Primary Status: Acute (3) Severe sepsis Status: Resolved (4) Obesity (BMI 30-39.9) Status: Chronic (5) Tobacco abuse Status: Chronic (6) Chronic respiratory failure Status: Chronic Qualifiers: Respiratory failure complication: hypoxia Qualified Code(s): J96.11 - Chronic respiratory failure with hypoxia Date of admission: 12/04/16 20:45 Primary care physician: Melodie Brand CNP Hospital course: Mr. Multani is a 61 year old male - Time Spent with Patient Total time spent providing and/or coordinating discharge services: 38min - Constitutional Vitals: Temp Pulse Resp BP Pulse Ox 97.6 F 74 16 115/83 97 12/08/16 07:00 12/08/16 07:00 12/08/16 07:00 12/08/16 07:00 12/08/16 07:22 - Attending Attestation I examined this patient and my medical decision-making was reviewed with the Resident Physician on 12/08/16. I agree with the documented findings, disposition and treatment plan as described except to the extent set forth below. Mr. Multani appears to be back to baseline. Up and walking without oxygen and doing OK. No new issues. Ready to go home today. Exam Alert. Comfortable Up and about Lungs clear Not tachy Plan D/C today Check if needs daytime oxygen Follow up with PCP in 1-2 weeks.
[2016-12-08] MEDS ORDERED: Aminoglycoside Consult 1 EACH MC ONE (15:49)
== END 2016-12-08 15:50 | disposition home or self-care (01) | DRG 871 ==
LOC: EMEROO 18:52 → 2NENU 20:45
PROVIDERS: ADMIT Internal Medicine; ATTEND Internal Medicine